=== PATIENT | female | born 1985 | race Caucasian/White ===

== ENCOUNTER 2021-05-09 12:09 | Emergency (ER) | payer BC ==
[2021-05-09 13:03] VITALS: BP 101/65; PULSE 74; RESP 16; TEMP 98.8
[2021-05-09] MEDS ORDERED: CIPROFLOXACIN-DEXAMETH 0.3-0.1% DROPS 7.5 ML BTL BOTH EARS STA (13:43)
--- NOTE | 2021-05-09 13:49 | ED ---
General Adult HPI - General Chief complaint: ENT Stated complaint: Singh.ear pain Time Seen by Provider: 05/09/21 13:36 Source: patient, RN notes reviewed Mode of arrival: ambulatory Limitations: no limitations - History of Present Illness Initial comments: This a 35-year-old female presents emergency department complaint of bilateral ear pain. Patient states her last week she's been having increasing discomfort both ear canals. States it's very itchy, painful. She states or dizziness changes she started wearing earplugs during the night secondary to her snoring. Patient states that she feels very itchy, no drainage but states they are very sensitive to touch. Patient states that she also started. Wearing ear buds were her work. Patient offers no complaints. - Related Data Allergies Allergy/AdvReac Type Severity Reaction Status Date / Time hydromorphone [From Dilaudid] Allergy Unknown Verified 05/09/21 13:03 iodine Allergy Unknown Verified 05/09/21 13:03 Review of Systems ROS Statement: Those systems with pertinent positive or pertinent negative responses have been documented in the HPI. ROS Other: All systems not noted in ROS Statement are negative. Past Medical History Past Medical History: No Reported History History of Any Multi-Drug Resistant Organisms: None Reported Past Surgical History: Hysterectomy Past Psychological History: No Psychological Hx Reported Smoking Status: Never smoker Past Alcohol Use History: Occasional Past Drug Use History: None Reported General Exam Limitations: no limitations General appearance: alert, in no apparent distress Head exam: Present: atraumatic, normocephalic, normal inspection Eye exam: Present: normal appearance, PERRL, EOMI. Absent: scleral icterus, conjunctival injection, periorbital swelling ENT exam: Present: normal oropharynx, mucous membranes moist, TM's normal bilaterally. Absent: normal external ear exam (Bilateral EAC mild erythema, noted skin irritation) Neck exam: Present: normal inspection, full ROM. Absent: tenderness, meningismus, lymphadenopathy Respiratory exam: Present: normal lung sounds bilaterally. Absent: respiratory distress, wheezes, rales, rhonchi, stridor Cardiovascular Exam: Present: regular rate, normal rhythm, normal heart sounds. Absent: systolic murmur, diastolic murmur, rubs, gallop, clicks Course Vital Signs 05/09/21 13:01 Temperature 98.8 F Pulse Rate 74 Respiratory 16 Rate Blood Pressure 101/65 O2 Sat by Pulse 99 Oximetry Medical Decision Making - Medical Decision Making Patient has bilateral EAC erythema, skin irritation or breakdown most likely from wearing prolonged earplugs treated for possible early otitis externa Disposition Clinical Impression: Otalgia of both ears, External auditory canal pruritus, Otitis externa Disposition: HOME SELF-CARE Condition: Stable Instructions (If sedation given, give patient instructions): Earache (ED) Additional Instructions: Use drops 4 drops twice daily for 7 days Please return to the Emergency Department if symptoms worsen or any other concerns. Is patient prescribed a controlled substance at d/c from ED?: No Referrals: Ramandeep Chung MD [Primary Care Provider] - 1-2 days Time of Disposition: 13:47
== END 2021-05-09 14:25 | disposition home or self-care (01) ==
LOC: EC 12:09
DX: H60.93 Unspecified otitis externa, bilateral (principal); L29.9 Pruritus, unspecified; Z88.5 Allergy status to narcotic agent; Z88.8 Allergy status to other drugs, medicaments and biological substances
CPT/HCPCS: 99282